=== PATIENT | male | born 1970 | race Caucasian/White ===

== ENCOUNTER 2024-02-21 12:14 | Emergency (ER) | payer SELFPAY ==
[2024-02-21] VITALS (10 sets, daily range): BP systolic 115–138; BP diastolic 54–88
[~2024-02-21] VITALS: Ht 180.3 cm; Wt 104.0 kg
[~2024-02-21 12:14] MED LIST: AUGMENTIN875TAB PO; CEPHALEXIN500 M1 PO; NO HOME MEDS; ROBITUSSIN AC10 ML PO; ZPAK PO; [UNRECOGNIZED DRUG - OTHER]
[2024-02-21 12:51] LABS: BASO% 0.3 % (0-3); HEMATOCRIT 48.5 % (39.0-50.0); HEMOGLOBIN 16.1 g/dl (14.0-18.0); IMMATURE GRANULOCYTES 0.9 % (0.0-5.0); MEAN CELL VOLUME 84.9 fL CALC (80.0-100.0); MEAN CORPUSCULAR HGB 28.2 pG CALC (26.0-32.0); MEAN CORPUSCULAR HGB CONC 33.2 g/dL CAL (32.0-36.0); MONO% 5.5 % (2-13); NEUT# 8.35 thou/uL (1.82-7.42); NEUT% 76.3 % (42-76); RED BLOOD COUNT 5.71 mill/uL (4.70-6.10); RED CELL DISTRI WIDTH 13.2 % (11.5-15.5)
[2024-02-21 13:00] LABS: ALBUMIN 4.7 g/dL (3.2-5.0); CREATININE 0.7 mg/dL (0.7-1.3); POTASSIUM 4.3 mmol/l (3.5-5.1)
[2024-02-21 13:04] LABS: BILIRUBIN, TOTAL 0.7 mg/dL (0.2-1.3); TOTAL PROTEIN 8.6 g/dL (6.3-8.2)
[2024-02-21] MEDS ORDERED: ZPAK PO (14:02)
[2024-02-21 14:40] LABS: URINE BILIRUBIN - DIPSTICK Negative (NEGATIVE); URINE BLOOD DIPSTICK Trace-intact (NEGATIVE); URINE COLOR Yellow; URINE GLUCOSE - DIPSTICK >=1000 mg/dL (NEGATIVE); URINE KETONE Negative (NEGATIVE); URINE LEUK ESTERASE Negative (NEGATIVE); URINE NITRITE - DIPSTICK Negative (Negative); URINE PROTEIN - DIPSTICK Negative (NEG-TRACE); URINE SPECIFIC GRAVITY 1.015; URINE UROBILINOGEN - DIPSTICK 0.2 E.U./dL (0.2)
== END 2024-02-21 14:46 | disposition home or self-care (01) | DRG 179 ==
LOC: ED 12:14
PROVIDERS: Nurse Practitioner
DX: U07.1 COVID-19 (principal); R53.1 Weakness; R19.7 Diarrhea, unspecified; R05.9 Cough, unspecified; I10 Essential (primary) hypertension; E11.9 Type 2 diabetes mellitus without complications; F17.200 Nicotine dependence, unspecified, uncomplicated

== ENCOUNTER 2024-09-03 18:04 | Emergency (ER) | payer SELFPAY ==
[~2024-09-03] VITALS: Ht 180.3 cm; Wt 100.0 kg
[2024-09-03] MEDS ORDERED: SIMVASTATIN10 MG PO (18:21)
[2024-09-03] MEDS ORDERED: METFORMIN HYD1000 MG PO (18:21)
[2024-09-03] MEDS ORDERED: HYDROCHLOROTH12.5 MG PO (18:22)
[2024-09-03] MEDS ORDERED: JARDIANCE25 MG PO (18:22)
[2024-09-03] MEDS ORDERED: guaiFENesin 200 MG/10 ML UDC PO ONE (18:55)
[2024-09-03] MEDS ORDERED: ALBUTEROL SULFATE 2.5 MG VIAL IN ONE (19:05)
[2024-09-03 19:24] LABS: ALKALINE PHOSPHATASE 67 u/l (38-126); BILIRUBIN, TOTAL 0.7 mg/dL (0.2-1.3); BUN 15 mg/dL (9-20); BUN/CREATININE RATIO 22 (12-20 (CALC)); CHLORIDE 104 mmol/l (95-108); CREATININE 0.7 mg/dL (0.7-1.3); ESTIMATED GFR 108 ML/MIN (>=90 (CALC)); SGOT/AST 51 u/l (17-59); SODIUM 138 mmol/l (137-146); TOTAL PROTEIN 7.5 g/dL (6.3-8.2)
[2024-09-03 19:33] LABS: ANION GAP 13 (6-22 (CALC)); CARBON DIOXIDE 24 mmol/l (22-30); POTASSIUM 3.3 mmol/l (3.5-5.1)
[2024-09-03 19:35] LABS: BASO% 0.4 % (0-3); EOS% 3.5 % (0-8); HEMATOCRIT 43.1 % (39.0-50.0); HEMOGLOBIN 14.2 g/dl (14.0-18.0); LYMPH% 27.4 % (15-41); MEAN CELL VOLUME 85.7 fL CALC (80.0-100.0); MEAN CORPUSCULAR HGB 28.2 pG CALC (26.0-32.0); MEAN CORPUSCULAR HGB CONC 32.9 g/dL CAL (32.0-36.0); MONO% 6.3 % (2-13); NEUT# 4.76 thou/uL (1.82-7.42); NEUT% 61.4 % (42-76); RED BLOOD COUNT 5.03 mill/uL (4.70-6.10)
[2024-09-03] MEDS ORDERED: POTASSIUM CHLORIDE 20 MEQ/TAB PO ONE (19:45)
[2024-09-03] MEDS ORDERED: BENZONATATE200 MG PO (19:47)
[2024-09-03 20:56] VITALS: BP 152/79
== END 2024-09-03 21:04 | disposition home or self-care (01) | DRG 153 ==
LOC: ED 18:04
PROVIDERS: Nurse Practitioner Family
DX: J06.9 Acute upper respiratory infection, unspecified (principal); E87.6 Hypokalemia; E11.9 Type 2 diabetes mellitus without complications; I10 Essential (primary) hypertension; E78.5 Hyperlipidemia, unspecified; Z79.84 Long term (current) use of oral hypoglycemic drugs; F17.200 Nicotine dependence, unspecified, uncomplicated; Z20.822 Contact with and (suspected) exposure to COVID-19